=== PATIENT | male | born 1995 | race African-American/Black ===

== ENCOUNTER 2018-09-08 00:36 | Emergency (ER) | payer OTHER ==
[~2018-09-08] VITALS: Ht 188 cm; Wt 81.8 kg
[2018-09-08 00:37] VITALS: BP 126/75; TEMP 97.4
[2018-09-08 03:25] VITALS: PULSE 75
== END 2018-09-08 03:25 | disposition home or self-care (01) ==
LOC: COL.ER 00:36
DX: S92.511A Displaced fracture of proximal phalanx of right lesser toe(s), initial encounter for closed fracture (principal); F17.210 Nicotine dependence, cigarettes, uncomplicated; W10.8XXA Fall (on) (from) other stairs and steps, initial encounter; Y92.009 Unspecified place in unspecified non-institutional (private) residence as the place of occurrence of the external cause